=== PATIENT | female | born 1985 | race Two or more races ===

== ENCOUNTER 2020-12-17 15:07 | Emergency (ER) | payer SELFPAY ==
[~2020-12-17] VITALS: Ht 162.6 cm; Wt 80.3 kg
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
[2020-12-17 15:53] LABS: BASOPHILS % (AUTO) 0.4 % (0.0-2.0); EOSINOPHILS % (AUTO) 0.3 % (0.0-6.0); HEMATOCRIT 37 % (33-45); HEMOGLOBIN 12.6 g/dL (11.5-14.8); LYMPHOCYTES # (AUTO) 1.8 /CMM (0.8-4.8); LYMPHOCYTES % (AUTO) 15.9 % (20.0-44.0); MEAN CORPUSCULAR HGB CONC 34 g/dl (31.0-36.0); MEAN CORPUSCULAR VOLUME 80 fL (82-100); MONOCYTES # (AUTO) 0.5 /CMM (0.1-1.30); MONOCYTES % (AUTO) 4.6 % (2.0-12.0); NEUTROPHILS # (AUTO) 8.8 /CMM (1.8-8.9); NEUTROPHILS % (AUTO) 78.8 % (43.0-81.0); PLATELET COUNT (AUTO) 433 /CMM (150-450); RED BLOOD CELL COUNT(AUTO) 4.66 MIL/uL (4.0-5.2); WHITE BLOOD COUNT (AUTO) 11.2 K/uL (4.3-11.0)
[2020-12-17] MEDS ORDERED: IOHEXOL-300 100 ML VIAL IV ONE (15:59)
[2020-12-17] MEDS ORDERED: CT SWABBABLE VALVE TRANS SET 1 EA INFUS.SET MC ONE (15:59)
[2020-12-17] MEDS ORDERED: IV NS 0.9% 250 ML IV ONE (15:59)
[2020-12-17 16:25] LABS: CALCIUM, SERUM 9.2 mg/dL (8.5-10.1); CREATININE 0.8 mg/dL (0.6-1.3); POTASSIUM 3.6 mmol/L (3.5-5.1)
[2020-12-17 16:31] LABS: ALBUMIN 4.1 g/dL (3.4-5.0); BILIRUBIN,DIRECT 0.1 mg/dL (0.0-0.2); BILIRUBIN,TOTAL 0.3 mg/dL (0.2-1.0)
[2020-12-17] MEDS ORDERED: KETOROLAC TROMETHAMINE INJ 30 MG/ML VIAL IV ONE (17:30)
[2020-12-17] MEDS ORDERED: KETOROLAC TROMETHAMINE 15 MG/ML VIAL ONE (18:03)
[2020-12-17] MEDS ORDERED: IBUP-1955 PO (18:28)
--- NOTE | 2020-12-17 18:55 | NUR ---
IV removed. Catheter intact and site benign. Pressure and 4x4 applied to site. No bleeding noted.Patient discharged to home in stable condition. Written and verbal after care instructions given. Patient verbalizes understanding of instruction.
[2020-12-17 18:56] VITALS: BP 127/85
== END 2020-12-17 18:56 | disposition home or self-care (01) ==
LOC: ER 15:09
DX: M25.531 Pain in right wrist (principal); M79.10 Myalgia, unspecified site; R10.84 Generalized abdominal pain; R51.9 Headache, unspecified; M54.2 Cervicalgia; R07.89 Other chest pain; M54.9 Dorsalgia, unspecified; V49.69XA Unspecified car occupant injured in collision with other motor vehicles in traffic accident, initial encounter; Y93.89 Activity, other specified; Y92.413 State road as the place of occurrence of the external cause; Y99.8 Other external cause status
CPT/HCPCS: 36415; 70450; 71045; 71260; 72125; 73110; 74177; 80048; 80076; 84702; 85025; 85730; 96374; 99285; J1885; J7050; Q9967